=== PATIENT | female | born 1980 | race Caucasian/White ===

== ENCOUNTER 2017-10-19 15:19 | Inpatient (IN) | payer BC, OTHER ==
[~2017-10-19] VITALS: Ht 165.1 cm; Wt 80.0 kg
[~2017-10-19 15:19] MED LIST: IBUP-1222 PO; OXYC-302 PO; PREN1TAB60 PO
[2017-10-19] MEDS ORDERED: MORPHINE SULFATE 4 MG/ML, 1ML IVPush PRN (15:30)
[2017-10-19] MEDS ORDERED: ONDANSETRON ODT 4 MG PO ONE (15:30)
[2017-10-19] MEDS ORDERED: SODIUM CHLORIDE 0.9% 1,000ML IVBOLUS ONE (15:30)
[2017-10-19 15:50] LABS: BASOPHILS % (AUTO) 0 % (0-1); EOSINOPHILS % (AUTO) 0 % (1-7); LYMPHOCYTES # (AUTO) 2.63 x10^3/uL (1-3.4); LYMPHOCYTES % (AUTO) 15 % (22-44); MD NO; MEAN CORPUSCULAR HEMOGLOBIN 31.2 pg (27.0-34.8); MEAN CORPUSCULAR HGB CONC 34.1 g/dL (32.4-35.8); MEAN CORPUSCULAR VOLUME 91.5 fL (80-100); MEAN PLATELET VOLUME 8.4 fL (7.4-10.4); MONOCYTES # (AUTO) 0.83 x10^3/uL (0.2-0.8); MONOCYTES % (AUTO) 5 % (2-9); NEUTROPHILS # (AUTO) 13.58 x10^3/uL (1.8-6.8); NEUTROPHILS % (AUTO) 80 % (42-75); PLATELET COUNT 288 x10^3/uL (130-400); RED BLOOD COUNT 3.61 x10^6/uL (3.82-5.3); RED CELL DISTRIBUTION WIDTH 13.3 % (9.6-15.2)
[2017-10-19] MEDS ORDERED: OXYTOCIN 10 UNITS/ML, 1ML ONE (16:35)
[2017-10-19] MEDS ORDERED: MISOPROSTOL 200 MCG TABLET ONE (16:35)
[2017-10-19] MEDS ORDERED: METHYLERGONOVINE 0.2 MG/ML IM ONE (16:35)
[2017-10-19] MEDS ORDERED: DEXAMETHASONE 4 MG/ML, 1ML ONE (17:07)
[2017-10-19] MEDS ORDERED: ONDANSETRON 2MG/ML, 2ML ONE (17:07)
[2017-10-19] MEDS ORDERED: SUCCINYLCHOLINE 20 MG/ML, 10ML ONE (17:07)
[2017-10-19] MEDS ORDERED: PROPOFOL 10 MG/ML, 20ML ONE (17:07)
[2017-10-19] MEDS ORDERED: ALBUTEROL SULFATE 2.5 MG/3 ML NPPB PRN (17:30)
[2017-10-19] MEDS ORDERED: FENTANYL PF 100 MCG/2ML IV PRN (17:30)
[2017-10-19] MEDS ORDERED: MEPERIDINE/PF 25MG/0.5ML IVPush PRN (17:30)
[2017-10-19] MEDS ORDERED: KETOROLAC 30 MG/1 ML IV PRN (17:30)
[2017-10-19] MEDS ORDERED: ONDANSETRON 2MG/ML, 2ML IVPush PRN (17:30)
[2017-10-19] MEDS ORDERED: OXYcodone 5 MG/5 ML ORAL.SOL UDC PO PRN (17:30)
[2017-10-19] MEDS ORDERED: METOCLOPRAMIDE 5 MG/ML, 2ML IV PRN (17:30)
[2017-10-19] MEDS ORDERED: HYDROmorphone 1 MG/ML, 1ML IV PRN (17:30)
[2017-10-19] MEDS ORDERED: LABETALOL 5MG/ML, 20ML IV PRN (17:30)
[2017-10-19] MEDS ORDERED: hydrALAzine 20 MG/ML, 1ML IV PRN (17:30)
[2017-10-19] MEDS ORDERED: PROMETHAZINE 25 MG/ML, 1ML IV PRN (17:30)
[2017-10-19] MEDS ORDERED: OXYcodone 5 MG/5 ML ORAL.SOL UDC ONE (17:46)
[2017-10-19 19:47] VITALS: BP 110/71
== END 2017-10-19 21:00 | disposition home or self-care (01) | DRG 770 ==
LOC: OR 16:34 → EDIP 16:36 → 4NOR 18:17
PROVIDERS: ADMIT Obstetrics & Gynecology; ATTEND Obstetrics & Gynecology
PROC: 10D17ZZ Extraction of Products of Conception, Retained, Via Natural or Artificial Opening (ICD-10-PCS; principal; 2017-10-19 16:45)
DX: O03.4 Incomplete spontaneous abortion without complication (principal); O36.4XX0 Maternal care for intrauterine death, not applicable or unspecified; Z37.1 Single stillbirth; Z98.891 History of uterine scar from previous surgery
CPT/HCPCS: 36415; 85025; 86901; 88305; 99285; J1100; J2405; J2704; J0330; J2210; J2590; J7030

== ENCOUNTER → 2019-12-17 | Outpatient (CLI) | payer BC ==
[~2019-12-17] MED LIST changes: +CEFAZOLIN 1,000 MG ONE; +EPHEDRINE 50 MG/ML, 1ML ONE; +ONDANSETRON 2MG/ML, 2ML ONE; +OXYTOCIN 10 UNITS/ML, 1ML ONE; +PHENYLEPHRINE 10 MG/ML ONE; +WATER-INJECTION,STERILE 10 ML IV ONE; +morphine SULFATE/PF 0.5 MG/ML, 10ML ONE
== END | disposition home or self-care (01) ==
LOC: STAR 16:23
PROVIDERS: ATTEND Obstetrics & Gynecology
DX: Z01.812 Encounter for preprocedural laboratory examination (principal); Z20.828 Contact with and (suspected) exposure to other viral communicable diseases
CPT/HCPCS: 36415; 87635

== ENCOUNTER 2019-12-22 10:08 | Inpatient (IN) | payer BC ==
[~2019-12-22] VITALS: Ht 165.1 cm; Wt 95.0 kg
[~2019-12-22 10:08] MED LIST changes: -CEFAZOLIN 1,000 MG ONE; -EPHEDRINE 50 MG/ML, 1ML ONE; -ONDANSETRON 2MG/ML, 2ML ONE; -OXYTOCIN 10 UNITS/ML, 1ML ONE; -PHENYLEPHRINE 10 MG/ML ONE; -WATER-INJECTION,STERILE 10 ML IV ONE; -morphine SULFATE/PF 0.5 MG/ML, 10ML ONE
[2019-12-22] MEDS ORDERED: NEWBORN KIT ONE (10:25)
[2019-12-22] MEDS ORDERED: OXYTOCIN 30U/ 0.9% NaCL 500ML 500 ML ONE (10:25)
[2019-12-22] MEDS ORDERED: METOCLOPRAMIDE 5 MG/ML, 2ML IV ONE (10:30)
[2019-12-22] MEDS ORDERED: LACTATED RINGERS 1,000 ML IVBOLUS ONE (10:30)
[2019-12-22] MEDS ORDERED: ONDANSETRON 2MG/ML, 2ML IVPush ONE (10:30)
[2019-12-22] MEDS ORDERED: CALCIUM CARBONATE 500 MG TAB.CHEW PO PRN (10:30)
[2019-12-22] MEDS ORDERED: SODIUM CITRATE/CITRIC ACID 30 ML UDC PO ONE (10:30)
[2019-12-22] MEDS ORDERED: PLEASE ENTER HEIGHT AND WEIGHT MC SCH (10:30)
[2019-12-22] MEDS ORDERED: METOCLOPRAMIDE 5 MG/ML, 2ML ONE (10:54)
[2019-12-22 11:01] LABS: BASOPHILS # (AUTO) 0.11 x10^3/uL (0-0.1); BASOPHILS % (AUTO) 1 % (0-1); EOSINOPHILS # (AUTO) 0.07 x10^3/uL (0-0.4); EOSINOPHILS % (AUTO) 1 % (1-7); LYMPHOCYTES # (AUTO) 2.24 x10^3/uL (1-3.4); LYMPHOCYTES % (AUTO) 18 % (22-44); MD NO; MEAN CORPUSCULAR HEMOGLOBIN 30.5 pg (27.0-34.8); MEAN CORPUSCULAR HGB CONC 32.7 g/dL (32.4-35.8); MEAN PLATELET VOLUME 10.1 fL (7.4-10.4); MONOCYTES # (AUTO) 0.85 x10^3/uL (0.2-0.8); MONOCYTES % (AUTO) 7 % (2-9); NEUTROPHILS # (AUTO) 9.52 x10^3/uL (1.8-6.8); NEUTROPHILS % (AUTO) 74 % (42-75); PLATELET COUNT 246 x10^3/uL (130-400); RED BLOOD COUNT 4.45 x10^6/uL (3.82-5.3); RED CELL DISTRIBUTION WIDTH 14.9 % (9.6-15.2)
[2019-12-22] MEDS ORDERED: LACTATED RINGERS 1,000 ML IV SCH (11:49)
[2019-12-22] MEDS: LACTATED RINGERS 1,000 ML IV SCH ×4 (12:49→22:49)
[2019-12-22] MEDS: OXYTOCIN 30U/ 0.9% NaCL 500ML 500 ML IV SCH ×2 (12:49→22:49)
[2019-12-22] MEDS ORDERED: OXYcodone/APAP 5/325MG TABLET PO PRN (13:00)
[2019-12-22] MEDS ORDERED: KETOROLAC 30 MG/1 ML IV PRN (13:00)
[2019-12-22] MEDS ORDERED: MISOPROSTOL 200 MCG TABLET PR PRN (13:00)
[2019-12-22] MEDS ORDERED: ONDANSETRON 2MG/ML, 2ML IV PRN (13:00)
[2019-12-22] MEDS ORDERED: SIMETHICONE 80 MG CHEW TAB PO PRN (13:00)
[2019-12-22] MEDS ORDERED: MORPHINE SULFATE 4 MG/ML, 1ML IVPush PRN (13:00)
[2019-12-22] MEDS ORDERED: KETOROLAC 30 MG/1 ML ONE (13:15)
[2019-12-22] MEDS: KETOROLAC 30 MG/1 ML IV SCH ×2 (13:18→19:25)
[2019-12-22] MEDS ORDERED: OXYcodone 5 MG/5 ML ORAL.SOL UDC ONE (14:35)
[2019-12-22 15:00] VITALS: BP 130/76
[2019-12-22] MEDS ORDERED: OXYcodone 5 MG/5 ML ORAL.SOL UDC PO ONE (15:00)
[2019-12-22] MEDS: OXYcodone IR 5MG TABLET PO PRN ×2 (16:12→22:39)
[2019-12-22] MEDS: ACETAMINOPHEN 325 MG TABLET PO PRN ×2 (16:12→22:39)
[2019-12-22 16:30] VITALS: BP 104/59
[2019-12-22] MEDS: DOCUSATE 100 MG CAPSULE PO PRN (19:25)
[2019-12-22 19:35] VITALS: BP 128/82
[2019-12-22 20:21] LABS: MEAN CORPUSCULAR HEMOGLOBIN 30.3 pg (27.0-34.8); MEAN CORPUSCULAR HGB CONC 32.3 g/dL (32.4-35.8); MEAN PLATELET VOLUME 9.5 fL (7.4-10.4); PLATELET COUNT 225 x10^3/uL (130-400); RED BLOOD COUNT 4.15 x10^6/uL (3.82-5.3); RED CELL DISTRIBUTION WIDTH 15.2 % (9.6-15.2)
[2019-12-22 20:47] LABS: BASOPHILS # (AUTO) 0.08 x10^3/uL (0-0.1); BASOPHILS % (AUTO) 1 % (0-1); EOSINOPHILS # (AUTO) 0.01 x10^3/uL (0-0.4); EOSINOPHILS % (AUTO) 0 % (1-7); LYMPHOCYTES # (AUTO) 2.11 x10^3/uL (1-3.4); LYMPHOCYTES % (AUTO) 12 % (22-44); MD SCAN; MONOCYTES % (AUTO) 6 % (2-9); NEUTROPHILS # (AUTO) 13.92 x10^3/uL (1.8-6.8); NEUTROPHILS % (AUTO) 81 % (42-75)
[2019-12-23 01:05] VITALS: BP 116/76
[2019-12-23] MEDS: KETOROLAC 30 MG/1 ML IV SCH ×3 (01:19→13:05)
[2019-12-23 04:30] VITALS: BP 120/75
[2019-12-23] MEDS: LACTATED RINGERS 1,000 ML IV SCH ×5 (04:49→20:49)
[2019-12-23] MEDS ORDERED: DIPH,PERTUSS(ACELL),TET VAC/PF NC IM-VACC ONE (07:15)
[2019-12-23] MEDS: PRENATAL VIT/IRON/FA 1 EACH TABLET PO SCH (07:22)
[2019-12-23] MEDS: DOCUSATE 100 MG CAPSULE PO PRN ×2 (07:22→19:36)
[2019-12-23 07:30] VITALS: BP 118/72
[2019-12-23] MEDS: OXYTOCIN 30U/ 0.9% NaCL 500ML 500 ML IV SCH ×2 (08:49→19:37)
[2019-12-23] MEDS: OXYcodone IR 5MG TABLET PO PRN ×3 (10:29→21:30)
[2019-12-23] MEDS: ACETAMINOPHEN 325 MG TABLET PO PRN ×3 (10:29→21:29)
[2019-12-23] MEDS ORDERED: DIPHENHYDRAMINE 25 MG CAPSULE PO PRN (11:00)
[2019-12-23] MEDS ORDERED: IBUPROFEN 600 MG TABLET ONE (13:08)
[2019-12-23] MEDS: IBUPROFEN 600 MG TABLET PO PRN ×2 (13:15→19:36)
[2019-12-23 19:30] VITALS: BP 119/80
[2019-12-24] MEDS: OXYcodone IR 5MG TABLET PO PRN ×2 (01:53→08:17)
[2019-12-24] MEDS: ACETAMINOPHEN 325 MG TABLET PO PRN ×2 (01:53→08:17)
[2019-12-24] MEDS: IBUPROFEN 600 MG TABLET PO PRN ×2 (01:54→08:17)
[2019-12-24] MEDS: LACTATED RINGERS 1,000 ML IV SCH ×2 (04:49)
[2019-12-24] MEDS: OXYTOCIN 30U/ 0.9% NaCL 500ML 500 ML IV SCH (04:49)
[2019-12-24] MEDS ORDERED: IBUP-1222 PO (08:16)
[2019-12-24] MEDS ORDERED: OXYC-302 PO (08:16)
[2019-12-24] MEDS: DOCUSATE 100 MG CAPSULE PO PRN (08:17)
[2019-12-24] MEDS: PRENATAL VIT/IRON/FA 1 EACH TABLET PO SCH (08:17)
[2019-12-24 08:47] VITALS: BP 120/78
[2019-12-24] MEDS ORDERED: IBUPROFEN 600 MG TABLET PO PRN (13:00)
== END 2019-12-24 10:30 | disposition home or self-care (01) | DRG 788 ==
LOC: LDIP 10:08 → 2NW 14:53
PROVIDERS: ADMIT Obstetrics & Gynecology; ATTEND Obstetrics & Gynecology
PROC: 10D00Z1 Extraction of Products of Conception, Low, Open Approach (ICD-10-PCS; principal; 2019-12-22)
DX: O34.211 Maternal care for low transverse scar from previous cesarean delivery (principal); Z37.0 Single live birth; Z3A.39 39 weeks gestation of pregnancy; Z88.0 Allergy status to penicillin
CPT/HCPCS: 36415; 85025; 86592; 86850; 86900; G0378; J0690; J1885; J2274; J2405; J2370; J2590; J2765; J7120; Q0163

== ENCOUNTER 2020-04-16 03:54 | Emergency (ER) | payer BC ==
[~2020-04-16] VITALS: Ht 165.1 cm; Wt 77.0 kg
--- NOTE | 2020-04-16 03:54 | NUR ---
INITIAL PT CONTACT. PT PRESENTS TO ED VIA EMS C/O TINGLING IN THE ARMS AND HANDS, "WRAPPING AROUND PRESSURE THROUGH THE UPPER ABDOMEN". PT HAD A BABY 4 MONTHS AGO, EXPERIENCING INCREASED STRESS AT HOME. PT STATES SHE HAD A SIMILAR EPISODE LAST WEEK AND "WAS ABLE TO MAKE MYSELF FEEL BETTER AFTER BREATHING A LITTLE SLOWER", NO SIGNIFICANT MEDICAL HX. PT DENIES ANY NEEDS AT THIS TIME. CALL LIGHT AND PERSONAL BELONGINGS WITHIN REACH.
--- NOTE | 2020-04-16 04:10 | NUR ---
Kervin mccabe in [facility] - 04/16/20 at 0420 by PORTER ERP AT BEDSIDE
[2020-04-16] MEDS ORDERED: FAMOTIDINE 20 MG TABLET ONE (04:51)
[2020-04-16] MEDS ORDERED: MAALOX/HYOSCYAMINE/LIDOCAINE 45 ML BTL ONE (04:51)
[2020-04-16] MEDS ORDERED: LORazepam 1MG TABLET ONE (04:51)
[2020-04-16] MEDS ORDERED: FAMOTIDINE 20 MG TABLET PO ONE (05:00)
[2020-04-16] MEDS ORDERED: MAALOX/HYOSCYAMINE/LIDOCAINE 45 ML BTL PO ONE (05:00)
[2020-04-16] MEDS ORDERED: LORazepam 1MG TABLET PO ONE (05:00)
--- NOTE | 2020-04-16 05:01 | NUR ---
PT TO BATHROOM TO PROVIDE URINE SAMPLE. PT AMBULATORY WITH STEADY GAIT, PT DENIES ANY NEEDS AT THIS TIME. CALL LIGHT AND PERSONAL BELONGINGS WITHIN REACH.
[2020-04-16 05:15] LABS: MICROSCOPIC INDICATED
[2020-04-16 05:30] LABS: BASOPHILS % (AUTO) 0 % (0-1); EOSINOPHILS % (AUTO) 0 % (1-7); LYMPHOCYTES % (AUTO) 13 % (22-44); MEAN CORPUSCULAR HGB CONC 33.6 g/dL (32.4-35.8); MEAN PLATELET VOLUME 8.6 fL (7.4-10.4); MONOCYTES % (AUTO) 8 % (2-9); NEUTROPHILS % (AUTO) 79 % (42-75); PLATELET COUNT 328 x10^3/uL (130-400); RED BLOOD COUNT 4.49 x10^6/uL (3.82-5.3); RED CELL DISTRIBUTION WIDTH 13.1 % (9.6-15.2)
[2020-04-16 05:31] LABS: MD NO
[2020-04-16 05:32] LABS: ALANINE AMINOTRANSFERASE 141 U/L (12-78); ALBUMIN 3.7 g/dL (3.4-5.0); ANION GAP 10 mmol/L (5-15); CALCIUM 9.1 mg/dL (8.5-10.1); CHLORIDE 110 mmol/L (98-107)
[2020-04-16 05:37] LABS: ALKALINE PHOSPHATASE 172 U/L (45-117); BILIRUBIN,TOTAL 1.1 mg/dL (0.2-1.0); TOTAL PROTEIN 7.7 g/dL (6.4-8.2)
--- NOTE | 2020-04-16 06:02 | NUR ---
PT SITTING UPRIGHT ON RENEE BRANNON VSS. PT REPORTS PAIN HAS DECREASED SIGNIFICANTLY, "SOME IS STILL THERE THOUGH". PT DENIES ANY NEEDS AT THIS TIME. CALL LIGHT IN REACH
--- NOTE | 2020-04-16 06:51 | NUR ---
BEDSIDE REPORT TO MARYJO MARTI
--- NOTE | 2020-04-16 06:56 | NUR ---
REPORT FROM NNEKA, PT RESTING.
[2020-04-16 07:38] VITALS: BP 119/72
--- NOTE | 2020-04-16 07:38 | NUR ---
Patient/Caregiver given discharge instructions and they have confirmed that they understand the instructions. Patient ambulatory with steady gait.
== END 2020-04-16 07:40 | disposition home or self-care (01) ==
LOC: ED 05:17
DX: K80.20 Calculus of gallbladder without cholecystitis without obstruction (principal); R10.13 Epigastric pain; R00.0 Tachycardia, unspecified; R07.9 Chest pain, unspecified; M54.5 Low back pain
CPT/HCPCS: 36415; 71045; 76700; 80053; 81001; 83690; 84703; 85025; 85379; 87086; 93005; 99285

== ENCOUNTER → 2020-05-05 | Outpatient (CLI) | payer BC ==
[~2020-05-05] MED LIST changes: +CETI10TA76 PO; +NORETHINDRONE PO; -OXYC-302 PO; +OXYC1TAB14 PO
== END | disposition home or self-care (01) ==
LOC: STAR 15:20
PROVIDERS: ATTEND Surgery
DX: Z20.822 Contact with and (suspected) exposure to COVID-19 (principal)
CPT/HCPCS: 87635

== ENCOUNTER 2020-05-09 05:52 | Day surgery (SDC) | payer BC ==
[2020-05-05 15:43] VITALS: BP 131/82
[~2020-05-09] VITALS: Ht 165.1 cm; Wt 76.0 kg
[2020-05-09 06:34] VITALS: BP 131/82
[2020-05-09 06:51] LABS: HCG UR SG 1.021 (1.003-1.030)
[2020-05-09] MEDS ORDERED: BUPIVACAINE/PF 0.25% ONE (06:54)
[2020-05-09] MEDS ORDERED: EPINEPHRINE 1 MG/ML, 1ML ONE (06:54)
[2020-05-09] MEDS ORDERED: LACTATED RINGERS 1,000 ML IV SCH (07:00)
[2020-05-09] MEDS ORDERED: CHLORHEXIDINE 15 ML UDC MM ONE (07:00)
[2020-05-09] MEDS ORDERED: HYDR-1067 PO (07:11)
[2020-05-09] MEDS ORDERED: FENTANYL PF 250 MCG/5ML ONE (07:27)
[2020-05-09] MEDS ORDERED: MIDAZOLAM 1 MG/ML, 2ML ONE (07:27)
[2020-05-09] MEDS ORDERED: FENTANYL PF 100 MCG/2ML ONE (08:28)
[2020-05-09] MEDS ORDERED: DIPHENHYDRAMINE 50 MG/ML, 1ML IVPush PRN (08:30)
[2020-05-09] MEDS ORDERED: PROMETHAZINE 12.5 MG SUPP PR PRN (08:30)
[2020-05-09] MEDS ORDERED: MEPERIDINE/PF 25MG/0.5ML IVPush PRN (08:30)
[2020-05-09] MEDS ORDERED: HYDROmorphone 1 MG/ML, 1ML INJ IVPush PRN (08:30)
[2020-05-09] MEDS ORDERED: ACETAMINOPHEN 325 MG TABLET PO PRN (08:30)
[2020-05-09] MEDS ORDERED: LABETALOL 5MG/ML, 20ML IV PRN (08:30)
[2020-05-09] MEDS ORDERED: EPHEDRINE 50 MG/ML, 1ML IVPush PRN (08:30)
[2020-05-09] MEDS: FENTANYL PF 100 MCG/2ML IV PRN ×4 (08:30→09:25)
[2020-05-09] MEDS ORDERED: ONDANSETRON 2MG/ML, 2ML IVPush PRN (08:30)
[2020-05-09] MEDS ORDERED: hydrALAzine 20 MG/ML, 1ML IV PRN (08:30)
[2020-05-09] MEDS ORDERED: OXYcodone 5 MG/5 ML ORAL.SOL UDC PO PRN (08:30)
[2020-05-09] MEDS ORDERED: PROMETHAZINE 25 MG/ML, 1ML IVPush PRN (08:30)
[2020-05-09] MEDS ORDERED: DIAZEPAM 5 MG/ML, 2ML IVPush PRN (08:30)
[2020-05-09] MEDS ORDERED: MIDAZOLAM 1 MG/ML, 2ML IV PRN (08:30)
[2020-05-09] MEDS ORDERED: ALBUTEROL SULFATE 2.5 MG/3 ML NPPB PRN (08:30)
[2020-05-09] MEDS ORDERED: OXYcodone 5 MG/5 ML ORAL.SOL UDC ONE (08:58)
== END 2020-05-09 11:55 | disposition home or self-care (01) ==
LOC: OUT 05:52
PROVIDERS: ATTEND Surgery
DX: K80.10 Calculus of gallbladder with chronic cholecystitis without obstruction (principal); E66.9 Obesity, unspecified; Z68.29 Body mass index [BMI] 29.0-29.9, adult; Z79.899 Other long term (current) drug therapy; Z88.0 Allergy status to penicillin
CPT/HCPCS: 47562; 81025; 88304; J0171; J2250; J3010; J7120